=== PATIENT | female | born 1965 | race American Indian/Alaskan Native ===

== ENCOUNTER 2018-08-01 06:34 | Outpatient (CLI) | payer MEDICARE ==
--- NOTE | 2018-08-02 01:49 | Magnetic Resonance Report ---
FINAL REPORT EXAM: MR PELVIS WO/W CON HISTORY: PELVIC PAIN/BLEEDING COMPARISON: None available. TECHNIQUE: Several multiplanar pre and post contrast sequences were obtained. IV contrast administered per institution protocol. Images submitted for interpretation. 15 cc MultiHance. FINDINGS: Exam is somewhat limited by patient motion despite repeating sequences. The uterus measures 4.3 by 2.1 by 3.9 centimeters. There is susceptibility artifact along the margin of the uterus which may relate to sequelae of prior or other surgery involving the uterus. Endometrial stripe measures 3 millimeters. Junctional zone measures 6 millimeters. There is mild heterogeneous enhancement the uterus without discrete lesion. There are dilated fluid-filled tubular structures in the bilateral adnexal regions concerning for bilateral hydrosalpinx each tubular structure measures up to approximately 1.6-1.7 centimeters in diameter. Left ovary measures 1.9 x 1.4 centimeters in axial dimension. Right ovary measures approximately 1.9 x 1.4 centimeters. No free fluid or lymphadenopathy in the pelvic cavity. Pelvic bowel loops normal in caliber. Moderate stool in the rectosigmoid colon. No pathologic lymphadenopathy. No pathologic marrow process within the bony pelvis. IMPRESSION: No discrete uterine lesions. Exam somewhat limited by patient motion. There is susceptibility artifact along the margin of the uterus concerning for sequelae of prior surgery. This may relate to prior . Correlation with surgical history is needed. Endometrial stripe within normal limits for patient's presumed perimenopausal state. Dilated fluid-filled tubular structures in the bilateral adnexal regions concerning for bilateral hydrosalpinx. No associated soft tissue inflammatory changes. Bilateral ovaries are small in size and otherwise unremarkable. No free fluid or lymphadenopathy in the pelvic cavity. Moderate stool in the rectosigmoid colon. No gross inflammatory changes of the bowel.
== END 2018-08-01 06:35 | disposition home or self-care (01) ==
LOC: MRI 06:34
PROVIDERS: ATTEND Radiology Vascular & Interventional Radiology
DX: R10.2 Pelvic and perineal pain (principal); N93.9 Abnormal uterine and vaginal bleeding, unspecified
CPT/HCPCS: 72197; A9577

== ENCOUNTER 2020-12-23 10:49 | Outpatient (CLI) | payer MEDICARE ==
--- NOTE | 2020-12-23 12:34 | Ultrasound Report ---
ULTRASOUND PELVIS INDICATION / CLINICAL INFORMATION: OVARIAN DYSFUNCTION. TECHNIQUE: Transvaginal. Duplex Color Doppler used: Yes. COMPARISON: MRI dated 08/01/2018 FINDINGS: UTERUS: Uterus measures 7.3 cm in length. There is an 8 mm echogenic focus with shadowing in the fund us and a 5 mm echogenic shadowing structure in the fundus characteristic of calcifications. These may represent tiny calcified fibroids. These may represent some dystrophic calcification in the uterus. The endometrial stripe measures 6 mm. No acute abnormality is seen in the uterus. RIGHT ADNEXA: Right ovary measures 0.8 cm in length. There is a 4.5 cm cyst in the right ovary. There is prominent right hydrosalpinx similar to that seen on this MRI from 2018. Normal color Doppler blo od flow. LEFT ADNEXA: Left ovary measures 1 cm in length. There are tiny cysts measuring 5 mm and 3 mm. Normal color Doppler blood flow. There is hydrosalpinx on the left similar to that seen on the prior MRI. URINARY BLADDER: No significant abnormality. FREE FLUID: None. ADDITIONAL FINDINGS: None. IMPRESSION: 1. There is a 4.5 cm cyst in the right ovary. There are 2 tiny subcentimeter cysts in the left ovary. 2. There is bilateral hydrosalpinx. Signer Name: Tejinder Rodriguez MD Signed: 12/23/2020 12:29 PM Workstation Name: [id number]
== END 2020-12-23 10:50 | disposition home or self-care (01) ==
LOC: VAS 10:49
PROVIDERS: ATTEND Obstetrics & Gynecology Reproductive Endocrinology
DX: N83.202 Unspecified ovarian cyst, left side (principal); N83.201 Unspecified ovarian cyst, right side; M16.0 Bilateral primary osteoarthritis of hip; N70.11 Chronic salpingitis
CPT/HCPCS: 36415; 76830; 82670; 83001; 84144; 84443; 84702

== ENCOUNTER 2021-10-26 10:16 | Outpatient (CLI) | payer MEDICARE ==
--- NOTE | 2021-10-26 12:38 | Ultrasound Report ---
Pelvic Ultrasound HISTORY: Z31.83 Encounter for ART Procedure Pt is trying to get order request follicle coun t, endo thickness and type (trilaminar vs homogenous. TECHNIQUE: Grayscale and color imaging performed. COMPARISON: Pelvic ultrasound from 12/23/2020 FINDINGS: Uterus measures 7.3 x 3.8 x 6.1 cm with endometrial complex measuring 9 mm. There is a 1.6 cm fibroid left of midline in the body of the uterus and there is also a small calcification in the f undus measuring 7 mm anteriorly. This is likely a tiny calcified fibroid. The ovaries both appear normal with preserved blood flow. There are again bilateral tubular structure s in each respective adnexa likely representing dilated fallopian tubes. IMPRESSION: 1. Dilated tubular structures again seen bilaterally suggesting bilateral hydrosalpinx. 2. Small fibroids, one of which is calcified. Signer Name: Wilber Mendiola MD Signed: 10/26/2021 12:33 PM Workstation Name: [id number]
== END 2021-10-26 10:17 | disposition home or self-care (01) ==
LOC: US 10:16
PROVIDERS: ATTEND Obstetrics & Gynecology Reproductive Endocrinology
DX: D25.9 Leiomyoma of uterus, unspecified (principal); Z31.83 Encounter for assisted reproductive fertility procedure cycle
CPT/HCPCS: 36415; 76830; 82670; 83001; 84144; 84443; 84702

== ENCOUNTER 2021-11-02 08:22 | Outpatient (CLI) | payer MEDICARE | END 2021-11-02 08:23 | disposition home or self-care (01) | LOC: LAB 08:22 | PROVIDERS: ATTEND Obstetrics & Gynecology Reproductive Endocrinology | DX: Z31.83 Encounter for assisted reproductive fertility procedure cycle (principal) | CPT/HCPCS: 36415; 82670; 84144 ==

== ENCOUNTER 2021-11-05 08:25 | Outpatient (CLI) | payer MEDICARE ==
--- NOTE | 2021-11-05 11:20 | Ultrasound Report ---
ULTRASOUND PELVIS INDICATION: FERTILITY. TECHNIQUE: Transvaginal. Duplex Color Doppler used: Yes. COMPARISON: Pelvic ultrasound from 10/26/2021. FINDINGS: Uterus: Present. Size: 6.5 x 3.9 x 4.8 cm. Endometrial complex: Normal measuring 0.6 cm. Mass lesions: Previously described possible fibroids are not as well-visualized on this study as on t he prior exam. No new masses. Additional findings: None. Right Ovary: Size: 2.0 x 1.1 x 2.0 cm Blood flow: Normal. Cyst or mass: Previously described possible right hydrosalpinx is again noted with mildly increased d istention of the fallopian tube, measuring 1.8 cm in short axis dimension, previously 1.3 cm. No othe r solid or cystic lesions. Left Ovary: The left ovary is not seen. Previously described possible left hydrosalpinx is again note d with mildly increased distention of the fallopian tube, measuring 1.7 cm in short axis dimension, p reviously 1.5 cm. No other significant abnormality. Urinary Bladder: Normal. Free Fluid: None. Additional Findings: None. IMPRESSION: 1. Persistent probable bilateral hydrosalpinx as described above. No new acute findings. 2. Additional findings as above. Signer Name: Adi Levine MD Signed: 11/05/2021 11:16 AM Workstation Name: [id number]
== END 2021-11-05 08:26 | disposition home or self-care (01) ==
LOC: US 08:25
PROVIDERS: ATTEND Obstetrics & Gynecology Reproductive Endocrinology
DX: Z31.83 Encounter for assisted reproductive fertility procedure cycle (principal); L73.2 Hidradenitis suppurativa
CPT/HCPCS: 36415; 76830; 82670; 84144

== ENCOUNTER 2021-11-09 08:57 | Outpatient (CLI) | payer MEDICARE | END 2021-11-09 08:58 | disposition home or self-care (01) | LOC: LAB 08:57 | PROVIDERS: ATTEND Obstetrics & Gynecology Reproductive Endocrinology | DX: Z31.83 Encounter for assisted reproductive fertility procedure cycle (principal) | CPT/HCPCS: 36415; 82670; 84144 ==

== ENCOUNTER 2021-11-29 08:04 | Outpatient (CLI) | payer MEDICARE ==
--- NOTE | 2021-11-29 09:47 | Ultrasound Report ---
ULTRASOUND PELVIS INDICATION / CLINICAL INFORMATION: Z31.83. TECHNIQUE: Transvaginal. Duplex Color Doppler used: Yes. COMPARISON: 11/05/2021 FINDINGS: UTERUS: - Appearance: No significant abnormality. - Size (cm): - Endometrial Complex (if present): There is thickening of the endometrium. There is a 5 mm calcifica tion adjacent to the endometrium near the fundus. Thickness in cm (if measured) = 1.7 - Mass or cyst: None. - Additional findings: None. RIGHT ADNEXA: There are dilated tubular structure noted in the right adnexa likely representing hydro salpinx. This measures up to 1.7 cm in diameter. Normal color Doppler blood flow. LEFT ADNEXA: There is a dilated tubular structure in the left adnexa measuring up to 1.6 cm. Normal c olor Doppler blood flow. URINARY BLADDER: No significant abnormality. FREE FLUID: None. ADDITIONAL FINDINGS: None. IMPRESSION: 1. Dilated to the structures in both right and left adnexa are again noted likely representing hydros alpinx. The appearance is similar to the previous study. Signer Name: Tejinder Rodriguez MD Signed: 11/29/2021 9:43 AM Workstation Name: [id number]
== END 2021-11-29 08:05 | disposition home or self-care (01) ==
LOC: US 08:04
DX: Z31.83 Encounter for assisted reproductive fertility procedure cycle (principal); R93.89 Abnormal findings on diagnostic imaging of other specified body structures
CPT/HCPCS: 36415; 76830; 82670; 83001; 84144; 84443; 84702

== ENCOUNTER 2021-12-13 08:13 | Outpatient (CLI) | payer MEDICARE ==
--- NOTE | 2021-12-13 10:20 | Ultrasound Report ---
ULTRASOUND PELVIS INDICATION: Z31.83 ENCOUNTER FOR ART PROCEDURE. TECHNIQUE: Transvaginal. Duplex Color Doppler used: Yes. COMPARISON: None available FINDINGS: Uterus: Present. Size: 8.1 x 4.4 x 4.3 cm. Endometrial complex: Normal measuring 0.7 cm. Mass lesions: 2 cm fundal fibroid. Benign-appearing fundal calcification. Additional findings: None. Right Ovary -- Normal. Blood flow: Normal. Cyst or mass: None. Moderate hydrosalpinx. Left Ovary-- Normal. Blood flow: Normal. Cyst or mass: None. Moderate hydrosalpinx. Urinary Bladder: Normal. Free Fluid: None. Additional Findings: None. IMPRESSION: 1. Bilateral hydrosalpinx. 2. Small uterine fibroid and benign-appearing calcification. Signer Name: Antonio Joiner MD Signed: 12/13/2021 10:15 AM Workstation Name: [id number]
== END 2021-12-13 08:14 | disposition home or self-care (01) ==
LOC: US 08:13
PROVIDERS: ATTEND Obstetrics & Gynecology Reproductive Endocrinology
DX: Z31.83 Encounter for assisted reproductive fertility procedure cycle (principal); N70.11 Chronic salpingitis; D25.9 Leiomyoma of uterus, unspecified
CPT/HCPCS: 36415; 76830; 82670; 83001; 84144; 84443; 84702

== ENCOUNTER 2021-12-20 14:42 | Outpatient (CLI) | payer MEDICARE | END 2021-12-20 14:43 | disposition home or self-care (01) | LOC: LAB 14:42 | PROVIDERS: ATTEND Obstetrics & Gynecology Reproductive Endocrinology | DX: Z31.83 Encounter for assisted reproductive fertility procedure cycle (principal) | CPT/HCPCS: 36415; 82670; 84144 ==

== ENCOUNTER 2021-12-27 08:21 | Outpatient (CLI) | payer MEDICARE ==
--- NOTE | 2021-12-27 15:16 | Ultrasound Report ---
ULTRASOUND PELVIS INDICATION / CLINICAL INFORMATION: Z31.83. ENCOUNTER FOR ART PROCEDURE. TECHNIQUE: Transvaginal. Duplex Color Doppler used: Yes. COMPARISON: Pelvic ultrasound 12/13/2021. FINDINGS: UTERUS: - Appearance: No significant abnormality. - Size (cm): 8.5 x 5.3 x 4.1 cm. - Endometrial Complex (if present): No significant abnormality.. Thickness in cm (if measured) = 0.9 cm. - Mass or cyst: Small fundal calcification is again visualized, unchanged. 1.1 cm posterior intramura l uterine fibroid noted. The previously visualized 2.0 cm fundal uterine fibroid is not identified. - Additional findings: None. RIGHT ADNEXA: The right ovary measures 1.8 x 2.6 x 1.2 cm. No significant ovarian cyst or mass. Yamileth l color Doppler blood flow. Moderate hydrosalpinx. LEFT ADNEXA: The left ovary measures 3.1 x 1.6 x 1.2 cm. No significant ovarian cyst or mass. Normal color Doppler blood flow. . Moderate hydrosalpinx. URINARY BLADDER: No significant abnormality. FREE FLUID: None. ADDITIONAL FINDINGS: None. IMPRESSION: 1. Bilateral hydrosalpinx is again visualized. 2. Uterine fibroid, as above. Scribed by: Heather Leal RDMS, FABIOT, FIDEL Scribed: 12/27/2021 1:21 PM I have reviewed the images, agree with this report, and edited this report as needed. Signer Name: Reggie Paulino MD Signed: 12/27/2021 3:12 PM Workstation Name: [id number]
== END 2021-12-27 08:22 | disposition home or self-care (01) ==
LOC: US 08:21
PROVIDERS: ATTEND Obstetrics & Gynecology Reproductive Endocrinology
DX: Z13.83 Encounter for screening for respiratory disorder NEC (principal); D25.9 Leiomyoma of uterus, unspecified; N85.8 Other specified noninflammatory disorders of uterus; N70.11 Chronic salpingitis
CPT/HCPCS: 36415; 76830; 82670; 84144